=== PATIENT | female | born 1960 | race Caucasian/White ===

== ENCOUNTER 2019-01-28 15:48 | Observation (INO) ==
[2019-01-28] MEDS ORDERED: Ondansetron 4 MG/2 ML VIAL IVP ONE (16:24)
[2019-01-28 17:09] LABS: Basophils % 0.5 %; Eosinophils # 0.1 K/mcL (0.0-0.6); Eosinophils % 1.1 %; Hematocrit 42.2 % (35.3-44.9); Immature Granulocytes % 0.3 % (0-4); Lymphocytes # 2.4 K/mcL (0.6-4.6); Lymphocytes % 32.7 %; Mean Corpuscular HGB Conc 35.5 g/dL (31.6-35.5); Mean Corpuscular Hemoglobin 32.5 pg (28.0-33.3); Mean Corpuscular Volume 91.3 fL (83.0-100.0); Mean Platelet Volume 9.2 fL (9.4-12.4); Monocytes # 0.5 K/mcL (0.0-1.3); Monocytes % 7.1 %; Neutrophils # 4.3 K/mcL (1.6-8.9); Platelet Count 252 K/mcL (140-400); Red Blood Count 4.62 M/mcL (3.82-4.97); Segmented Neutrophils % 58.3 %; White Blood Count 7.4 K/mcL (4.3-11.1)
[2019-01-28 17:23] LABS: Amphetamine Screen,Urine Negative ng/mL (Cutoff=1000); Barbiturate Screen,Urine Negative ng/mL (Cutoff=200); Benzodiazepines Screen,Urine Negative ng/mL (Cutoff=200); Cannabinoid Screen,Urine Negative ng/mL (Cutoff = 50); Cocaine Screen,Urine Negative ng/mL (Cutoff= 300); Opiate Screen,Urine Negative ng/mL (Cutoff=300); Phencyclidine Screen,Urine Negative ng/mL (Cutoff=25)
[2019-01-28 17:25] LABS: Alanine Aminotransferase 22 Units/L (7-52); Albumin 4.5 g/dL (3.5-5.7); Albumin/Globulin Ratio 1.7 (1.1-2.2); Alkaline Phosphatase 100 Units/L (34-104); Aspartate Amino Transferase 20 Units/L (13-39); BUN/Creatinine Ratio 13 (6-26); Bilirubin,Total 0.4 mg/dL (0.3-1.0); Blood Urea Nitrogen 8 mg/dL (6-20); Calcium 9.5 mg/dL (8.6-10.3); Carbon Dioxide 25 mEq/L (23-29); Chloride 97 mEq/L (98-107); Creatine Kinase 53 Units/L (30-223); Globulin 2.7 g/dL (2.4-3.5); Glucose 113 mg/dL (70-105); Magnesium 2.1 mg/dL (1.6-2.6); Osmolality,Calculated 263 (280-300); Potassium 3.7 mEq/L (3.5-5.1); Sodium 127 mEq/L (136-145); Total Protein 7.2 g/dL (6.4-8.9); eGFR For African Americans > 60 (> 60); eGFR For Non-African Americans > 60 (> 60)
[2019-01-28 17:26] LABS: Acetaminophen < 10 mcg/mL (10-20); Ethanol < 10 mg/dL (Less than 10); Salicylate < 2.5 mg/dL (15.0-30.0)
[2019-01-28] MEDS ORDERED: 0.9 % Sodium Chloride 1,000 ML IVC ONE (17:45)
[2019-01-28] MEDS ORDERED: Mag Hydrox/Al Hydrox/Simeth 30 ML UDC PO PRN (18:18)
[2019-01-28] MEDS ORDERED: Ondansetron 4 MG/2 ML VIAL IVP PRN (18:18)
[2019-01-28] MEDS ORDERED: Naloxone 0.4 MG/ML INJ IVP PRN ×2 (18:18)
[2019-01-28 18:25] LABS: Bilirubin,Urine Negative (Negative); Blood,Urine Negative (Negative); Clarity,Urine Clear (Clear); Color,Urine Yellow (Yellow); Glucose,Urine (UA) Normal (Normal); Ketones,Urine Negative (Negative); Leukocyte Esterase,Urine Trace (Negative); Nitrite,Urine Negative (Negative); PH,Urine 7.5 pH Units (5.0-8.0); Protein,Urine Negative (Neg-Trace); Urobilinogen,Urine Normal (Normal)
[2019-01-28 18:28] LABS: INR 1.1; Prothrombin Time 12.3 Seconds (9.4-12.1)
[2019-01-28 18:33] LABS: Amorphous Sediment,Urine Moderate (Few); Squamous Epithelial Cell,Urine Moderate per lpf (None-Few); WBC,Urine 0-3 per hpf (0-3)
[2019-01-28 18:34] LABS: Bacteria,Urine Moderate per hpf (None-Few)
[2019-01-28] MEDS ORDERED: *HR* Enoxaparin 40 MG/0.4 ML SYRINGE SQ ONE (18:43)
[2019-01-28] MEDS: 0.9 % Sodium Chloride 1,000 ML IVC SCH (19:33)
[2019-01-29] MEDS: 0.9 % Sodium Chloride 1,000 ML IVC SCH (02:18)
[2019-01-29 05:41] LABS: BUN/Creatinine Ratio 14 (6-26); Blood Urea Nitrogen 8 mg/dL (6-20); Calcium 8.6 mg/dL (8.6-10.3); Carbon Dioxide 27 mEq/L (23-29); Chloride 103 mEq/L (98-107); Glucose 97 mg/dL (70-105); Osmolality,Calculated 276 (280-300); Potassium 3.8 mEq/L (3.5-5.1); Sodium 134 mEq/L (136-145); eGFR For African Americans > 60 (> 60); eGFR For Non-African Americans > 60 (> 60)
[2019-01-29 07:54] VITALS: BP 118/70
[2019-01-29] MEDS ORDERED: amLODIPine 5 MG TABLET PO SCH (09:00)
[2019-01-29] MEDS ORDERED: Lisinopril 20 MG TABLET PO SCH (09:00)
[2019-01-29] MEDS ORDERED: Metoprolol XL (24 HR) Succ 50 MG TAB.ER.24H PO SCH (09:00)
[2019-01-29 12:11] LABS: Sodium, Urine 233.9 mEq/L
== END 2019-01-29 13:54 | disposition home or self-care (01) ==
LOC: EMEROOGRE 15:48 → INPGRE 15:48